=== PATIENT | male | born 1955 | race Caucasian/White ===

== ENCOUNTER 2016-09-28 19:13 | Inpatient (IN) | payer BC ==
[~2016-09-28] VITALS: Ht 182.9 cm; Wt 85.8 kg
[~2016-09-28 19:13] MED LIST: DIOVAN80 MG PO; ECOTRIN325 MG PO; GLUCOPHAGE500 MG PO; JANUVIA100 MG PO; LIPITOR80 MG PO; TOPROL XL50 MG PO; ZANTAC150 MG PO
[2016-09-28 19:37] LABS: HEMATOCRIT 41.4 % (38.0-50.0); MCH 30.5 PG (29.0-34.0); MCHC 35.3 G/DL (30.0-36.0); MCV 86.4 FL (86-99); RBC DIS.WIDTH-CV 12.6 % (11.8-14.6); RBC DIS.WIDTH-SD 39.9 % (39-53); RED BLOOD COUNT 4.79 M/uL (4.00-5.50); WHITE BLOOD COUNT 10.8 K/uL (4.1-10.2)
[2016-09-28 19:49] LABS: CHLORIDE 107 mEq/L (99-109); POTASSIUM 3.7 mEq/L (3.7-5.4); SODIUM 141 mEq/L (136-147)
[2016-09-28 19:51] LABS: GLUCOSE 209 mg/dL (70-99)
[2016-09-28 19:52] LABS: ANION GAP 11 MEQ/L (2-14)
[2016-09-28 19:55] LABS: GFR ESTIMATE (CALCULATED) > 59 mL/min/
[2016-09-28 19:56] LABS: UREA NITROGEN (BUN) 15 mg/dL (9-23)
[2016-09-28 19:57] LABS: TROP-I INTERPRETATION NEGATIVE; TROPONIN-I < 0.01 ng/mL (0.0-0.30)
[2016-09-28 20:01] LABS: TOTAL BILIRUBIN 0.9 mg/dL (0.0-1.0)
[2016-09-28 20:02] LABS: ALKALINE PHOSPHATASE 106 IU/L (3-129)
[2016-09-28 20:04] LABS: DIRECT BILIRUBIN 0.4 mg/dL (0.0-0.3)
[2016-09-28 20:06] LABS: LIPASE 154 U/L (1.0-51.0)
[2016-09-28 20:50] LABS: HEMATOLOGY COMMENT 1 SN; IMM.PLATELET FRACTION 14.2 (1-7); MEAN PLAT.VOLUME 12.6 uM^3 (9.0-12.4); PLAT.SUFFICIENCY DECREASED; PLATELET COUNT 42 K/uL (156-360)
[2016-09-28] MEDS ORDERED: METFORMIN HCL500 M1 PO (23:35)
[2016-09-28] MEDS ORDERED: LOPRESSOR50 MG PO (23:35)
[2016-09-28] MEDS ORDERED: NITROSTAT0.4 MG SL (23:36)
[2016-09-28] MEDS ORDERED: ONCE DAILY1 EACH PO (23:37)
[2016-09-28] MEDS ORDERED: ASPIR 8181 M1 PO (23:37)
[2016-09-28] MEDS ORDERED: LOSARTAN POTASS50 MG PO (23:40)
[2016-09-29] VITALS (7 sets, daily range): BP systolic 109–135; BP diastolic 58–70
[2016-09-29 00:30] LABS: ADD MIUA? YES; BILIRUBIN NEGATIVE; BLOOD NEGATIVE; COLOR YELLOW ((YELLOW)); GLUCOSE (STRIP) 50; KETONES NEGATIVE; LEUKOCYTES NEGATIVE; NITRITE NEGATIVE; PROTEIN (STRIP) NEGATIVE
[2016-09-29 00:41] LABS: BACTERIA RARE /HPF; EPITHELIAL CELLS NONE SEEN /HPF; MUCUS TRACE /LPF; RED BLOOD CELLS 0-5 /HPF (0-5); UCUL ADDED? NO; WHITE BLOOD CELLS 0-5 /HPF (0-5)
[2016-09-29 00:46] LABS: SPECIFIC GRAVITY 1.092 (1.000-1.030)
[2016-09-29 06:37] LABS: EOSINOPHIL (%) 3.4 % (0-5); EOSINOPHIL COUNT 0.3 K/uL (0-0.3); HEMATOCRIT 40.8 % (38.0-50.0); IMMATURE GRANULOCYTE (%) 0.3 % (0.0-0.7); LYMPHOCYTE COUNT 1.3 K/uL (1.0-2.8); MCH 30.2 PG (29.0-34.0); MCHC 34.3 G/DL (30.0-36.0); MCV 88.1 FL (86-99); MONOCYTE (%) 7.1 % (3-12); MONOCYTE COUNT 0.7 K/uL (0-0.8); NEUTROPHIL (%) 74.8 % (45-76); RBC DIS.WIDTH-CV 12.8 % (11.8-14.6); RBC DIS.WIDTH-SD 41.6 % (39-53); RED BLOOD COUNT 4.63 M/uL (4.00-5.50); WHITE BLOOD COUNT 9.4 K/uL (4.1-10.2)
[2016-09-29 07:00] LABS: ANION GAP 7 MEQ/L (2-14); CHLORIDE 110 MEQ/L (99-109); GFR ESTIMATE (CALCULATED) > 59 mL/min/; POTASSIUM 3.8 MEQ/L (3.7-5.4); SAMPLE HEMOLYSIS CHECK 0; SAMPLE ICTERIC CHECK 0; SAMPLE LIPEMIA CHECK 0; SODIUM 144 MEQ/L (136-147); UREA NITROGEN (BUN) 14 mg/dL (9-23)
[2016-09-29 07:03] LABS: GLUCOSE 83 mg/dL (70-99)
[2016-09-29 07:13] LABS: TROP-I INTERPRETATION NEGATIVE; TROPONIN-I < 0.01 ng/mL (0.0-0.30)
[2016-09-29 07:19] LABS: IMM.PLATELET FRACTION 13.8 (1-7); MEAN PLAT.VOLUME 13.7 uM^3 (9.0-12.4); PLATELET COUNT 36 K/uL (156-360)
[2016-09-29 08:24] LABS: POINT-OF-CARE METER ID UU14149397
[2016-09-29 10:57] LABS: HDL CHOLESTEROL 25 MG/DL (Desirable>=40); LDL CHOLESTEROL 51 mg/dL (Desirable<100); NON-HDL CHOLESTEROL 70 mg/dL (Desirable<160); TOTAL CHOLESTEROL 95 mg/dL (Desirable<200); TRIGLYCERIDES 97 MG/DL (Normal: <150)
[2016-09-29 11:39] LABS: Estimated Average Glucose 157 mg/dL (70-123); HEMOGLOBIN A1c (GLYCOHEMOGLOB) 7.1 % HGB (Below 5.7)
[2016-09-29 13:03] LABS: TROP-I INTERPRETATION NEGATIVE; TROPONIN-I < 0.01 ng/mL (0.0-0.30)
[2016-09-29 13:25] LABS: INTER. NORMALIZED RATIO 1.1
[2016-09-29 13:28] LABS: PTT 29.9 SEC (25-37)
[2016-09-30] VITALS (8 sets, daily range): BP systolic 119–167; BP diastolic 58–88
[2016-09-30 06:28] LABS: HEMATOCRIT 40.2 % (38.0-50.0); MCH 30.6 PG (29.0-34.0); MCHC 34.8 G/DL (30.0-36.0); MCV 87.8 FL (86-99); RBC DIS.WIDTH-CV 12.8 % (11.8-14.6); RBC DIS.WIDTH-SD 41.1 % (39-53); RED BLOOD COUNT 4.58 M/uL (4.00-5.50); WHITE BLOOD COUNT 9.1 K/uL (4.1-10.2)
[2016-09-30 06:33] LABS: POINT-OF-CARE METER ID UU14188577
[2016-09-30 06:52] LABS: GFR ESTIMATE (CALCULATED) > 59 mL/min/; UREA NITROGEN (BUN) 10 mg/dL (9-23)
[2016-09-30 06:56] LABS: ALKALINE PHOSPHATASE 97 IU/L (3-129); ANION GAP 7 MEQ/L (2-14); CHLORIDE 110 MEQ/L (99-109); GFR ESTIMATE (CALCULATED) > 59 mL/min/; GLUCOSE 90 mg/dL (70-99); POTASSIUM 3.9 MEQ/L (3.7-5.4); SAMPLE HEMOLYSIS CHECK 0; SAMPLE ICTERIC CHECK 0; SAMPLE LIPEMIA CHECK 0; SODIUM 143 MEQ/L (136-147); TOTAL BILIRUBIN 0.8 MG/DL (0.0-1.0); UREA NITROGEN (BUN) 10 mg/dL (9-23)
[2016-09-30 07:29] LABS: IMM.PLATELET FRACTION 13.7 (1-7); MEAN PLAT.VOLUME 13.1 uM^3 (9.0-12.4); PLATELET COUNT 35 K/uL (156-360)
[2016-09-30 12:04] LABS: POINT-OF-CARE METER ID UU14188577
[2016-09-30 18:30] LABS: POINT-OF-CARE METER ID UU13113819
[2016-10-01 00:12] VITALS: BP 112/58
[2016-10-01 03:34] VITALS: BP 110/53
[2016-10-01 06:21] LABS: HEMATOCRIT 39.1 % (38.0-50.0); MCH 30.2 PG (29.0-34.0); MCV 86.1 FL (86-99); MEAN PLAT.VOLUME 12.5 uM^3 (9.0-12.4); PLATELET COUNT 55 K/uL (156-360); RBC DIS.WIDTH-CV 12.4 % (11.8-14.6); RBC DIS.WIDTH-SD 39.2 % (39-53); RED BLOOD COUNT 4.54 M/uL (4.00-5.50); WHITE BLOOD COUNT 8.2 K/uL (4.1-10.2)
[2016-10-01 06:49] LABS: ALKALINE PHOSPHATASE 112 IU/L (3-129); ANION GAP 10 MEQ/L (2-14); CHLORIDE 105 MEQ/L (99-109); GFR ESTIMATE (CALCULATED) > 59 mL/min/; GLUCOSE 123 mg/dL (70-99); POTASSIUM 4.2 MEQ/L (3.7-5.4); SAMPLE HEMOLYSIS CHECK 0; SAMPLE ICTERIC CHECK 0; SAMPLE LIPEMIA CHECK 0; SODIUM 141 MEQ/L (136-147); TOTAL BILIRUBIN 0.8 MG/DL (0.0-1.0); UREA NITROGEN (BUN) 12 mg/dL (9-23)
[2016-10-01 08:19] LABS: LIPASE 72 U/L (1.0-51.0)
[2016-10-01 08:22] VITALS: BP 120/65
[2016-10-01 10:22] LABS: ANTI-HEPATITIS A VIRUS (IGM) Nonreactive; ANTI-HEPATITIS B CORE (IGM) Nonreactive; HAV INDEX 0.11; HBC IgM INDEX 0.07
[2016-10-01 11:32] LABS: POINT-OF-CARE METER ID UU14188577
== END 2016-10-01 13:10 | disposition home or self-care (01) | DRG 444 ==
LOC: EME → EDBD 19:13 → EME 19:13 → EDOF 23:29 → 3EAST 23:29 → ENRESERV 23:34 → 3EAST 09-29 00:48
PROVIDERS: Hospitalist; Internal Medicine; Internal Medicine Gastroenterology; Internal Medicine Hematology & Oncology
PROC: 0F798DZ Dilation of Common Bile Duct with Intraluminal Device, Via Natural or Artificial Opening Endoscopic (ICD-10-PCS; principal; 2016-09-30)
PROC: 0DJ08ZZ Inspection of Upper Intestinal Tract, Via Natural or Artificial Opening Endoscopic (ICD-10-PCS; principal; 2016-09-30)
PROC: 0F7D8DZ Dilation of Pancreatic Duct with Intraluminal Device, Via Natural or Artificial Opening Endoscopic (ICD-10-PCS; principal; 2016-09-30)
PROC: 30233R1 Transfusion of Nonautologous Platelets into Peripheral Vein, Percutaneous Approach (ICD-10-PCS; principal; 2016-09-30)
PROC: 0FC98ZZ Extirpation of Matter from Common Bile Duct, Via Natural or Artificial Opening Endoscopic (ICD-10-PCS; principal; 2016-09-30)
DX: K80.51 Calculus of bile duct without cholangitis or cholecystitis with obstruction (principal); K85.10 Biliary acute pancreatitis without necrosis or infection; I25.10 Atherosclerotic heart disease of native coronary artery without angina pectoris; I10 Essential (primary) hypertension; Z95.5 Presence of coronary angioplasty implant and graft; Z90.49 Acquired absence of other specified parts of digestive tract; F17.200 Nicotine dependence, unspecified, uncomplicated; E78.5 Hyperlipidemia, unspecified; E11.9 Type 2 diabetes mellitus without complications; I25.2 Old myocardial infarction; D69.6 Thrombocytopenia, unspecified; E78.00 Pure hypercholesterolemia, unspecified; D47.3 Essential (hemorrhagic) thrombocythemia; J44.9 Chronic obstructive pulmonary disease, unspecified
CPT/HCPCS: 71020; 74177; 74330; 80048; 80053; 80061; 80074; 80076; 81003; 82565; 82607; 82746; 82948; 83030; 83036; 83690; 84484; 84520; 85025; 85027; 85049; 85610; 85730; 86900; 86901; 87081; 88108; 93005; 99281; 99285; C1757; C2625; J0330; J1650; J1815; J2250; J2270; J2405; J2790; J3010; J7030; J7040; J7120; P9035; P9037; S0028

== ENCOUNTER → 2016-11-11 | Outpatient (CLI) | payer BC ==
[~2016-11-11] VITALS: Ht 180.3 cm; Wt 85.3 kg
[~2016-11-11] MED LIST changes: +ASPIR 8181 M1 PO; +COZAAR50 MG PO; +LOPRESSOR50 MG PO; +LOSARTAN POTASS50 MG PO; +METFORMIN HCL500 M1 PO; +NITROSTAT0.4 MG SL; +ONCE DAILY1 EACH PO; +PROAIR HFA8.5 GM IH; +STOOL SOFTENER100 MG PO
[2016-11-11 11:57] LABS: POINT-OF-CARE METER ID UU14107333
== END | disposition home or self-care (01) ==
LOC: AMB 08:00
PROVIDERS: Internal Medicine Gastroenterology
PROC: 0FPB8DZ Removal of Intraluminal Device from Hepatobiliary Duct, Via Natural or Artificial Opening Endoscopic (ICD-10-PCS; principal; 2016-11-11)
DX: Z46.89 Encounter for fitting and adjustment of other specified devices (principal); K80.51 Calculus of bile duct without cholangitis or cholecystitis with obstruction; Z90.49 Acquired absence of other specified parts of digestive tract; I10 Essential (primary) hypertension; I65.23 Occlusion and stenosis of bilateral carotid arteries; E11.3299 Type 2 diabetes mellitus with mild nonproliferative diabetic retinopathy without macular edema, unspecified eye; K21.9 Gastro-esophageal reflux disease without esophagitis; D69.6 Thrombocytopenia, unspecified; R63.4 Abnormal weight loss; Z79.82 Long term (current) use of aspirin; Z79.84 Long term (current) use of oral hypoglycemic drugs; F17.200 Nicotine dependence, unspecified, uncomplicated; Z68.26 Body mass index [BMI] 26.0-26.9, adult
CPT/HCPCS: 82948; 87081; C1757; J0330